=== PATIENT | female | born 1980 | race African-American/Black ===

== ENCOUNTER 2016-06-01 20:02 | Emergency (ER) | payer OTHER ==
[~2016-06-01] VITALS: Ht 160 cm; Wt 115.6 kg
[~2016-06-01 20:02] MED LIST: ASPIRIN81 M2 PO; GABAPENTIN300 MG PO; GLIPIZIDE5 MG PO; LANTUS 10100 UNITS/ SC; LISINOPRIL20 MG PO; METFORMIN HCL850 MG PO; METOPROLOL TART25 MG PO; SIMVASTATIN20 MG PO; TYLENOL WITH C1 EACH PO; VENTOLIN HFA18 GM IH
[2016-06-01 20:42] LABS: EOSINOPHIL COUNT 0.1 K/uL (0-0.3); HEMATOCRIT 38.7 % (36.0-46.0); IMMATURE GRANULOCYTE (%) 0.1 % (0.0-0.7); INSTRUMENT ABS NEUTROPHIL CT 3.1 K/uL; LYMPHOCYTE COUNT 3.7 K/uL (1.0-2.8); MCH 27.6 PG (29.0-34.0); MCHC 31.5 G/DL (30.0-36.0); MCV 87.6 FL (83-99); MEAN PLAT.VOLUME 10.4 uM^3 (9.5-12.4); MONOCYTE (%) 5.9 % (3-12); MONOCYTE COUNT 0.4 K/uL (0-0.8); NEUTROPHIL COUNT 3.1 K/uL (1.8-6.4); PLATELET COUNT 276 K/uL (156-360); RBC DIS.WIDTH-CV 13.3 % (11.8-14.6); RED BLOOD COUNT 4.42 M/uL (3.80-5.20); WHITE BLOOD COUNT 7.3 K/uL (4.1-10.2)
[2016-06-01 20:53] LABS: CHLORIDE 103 mEq/L (99-109); POTASSIUM 3.6 mEq/L (3.7-5.4); SODIUM 138 mEq/L (136-147)
[2016-06-01 20:55] LABS: GLUCOSE 203 mg/dL (70-99)
[2016-06-01 20:56] LABS: ANION GAP 9 MEQ/L (2-14)
[2016-06-01 20:57] LABS: TOTAL BILIRUBIN 0.2 mg/dL (0.0-1.0)
[2016-06-01 20:58] LABS: ALKALINE PHOSPHATASE 75 IU/L (3-129)
[2016-06-01 20:59] LABS: GFR ESTIMATE (CALCULATED) > 59 mL/min/
[2016-06-01 21:00] LABS: UREA NITROGEN (BUN) 7 mg/dL (9-23)
[2016-06-01 21:02] LABS: LIPASE 321 U/L (1.0-51.0)
[2016-06-01 21:03] LABS: ADD MIUA? YES; BILIRUBIN NEGATIVE; BLOOD MODERATE; COLOR YELLOW ((YELLOW)); GLUCOSE (STRIP) NEGATIVE; KETONES NEGATIVE; LEUKOCYTES TRACE; NITRITE NEGATIVE; PROTEIN (STRIP) NEGATIVE; SPECIFIC GRAVITY 1.011 (1.000-1.030); UROBILINOGEN 0.2 MG/DL (0.2-1.0)
[2016-06-01 21:42] LABS: BACTERIA RARE /HPF; EPITHELIAL CELLS 1+ /HPF; MUCUS NONE SEEN /LPF; WHITE BLOOD CELLS 0-5 /HPF (0-5)
[2016-06-01] MEDS ORDERED: ZOFRAN ODT4 MG PO (23:18)
[2016-06-01] MEDS ORDERED: NORCO 7.5/321 TABLET PO (23:18)
[2016-06-01 23:30] VITALS: BP 144/85
== END 2016-06-01 23:29 | disposition left against medical advice (07) ==
LOC: RME 20:02 → EME 20:02 → RME 23:29
PROVIDERS: Physician Assistant
DX: K85.90 Acute pancreatitis without necrosis or infection, unspecified (principal); E11.65 Type 2 diabetes mellitus with hyperglycemia; I10 Essential (primary) hypertension; Z79.82 Long term (current) use of aspirin; Z79.4 Long term (current) use of insulin; Z79.84 Long term (current) use of oral hypoglycemic drugs; Z72.0 Tobacco use
CPT/HCPCS: 74177; 80053; 81003; 83605; 83690; 85025; 99281; 99285; J1885; J3010; J7030

== ENCOUNTER 2016-06-03 10:02 | Inpatient (IN) | payer OTHER ==
[~2016-06-03] VITALS: Ht 160 cm; Wt 115.1 kg
[~2016-06-03 10:02] MED LIST changes: +NORCO 7.5/321 TABLET PO; +ZOFRAN ODT4 MG PO
[2016-06-03 10:52] LABS: POINT-OF-CARE METER ID UU14100415
[2016-06-03 11:07] LABS: HEMATOCRIT 40.2 % (36.0-46.0); MCH 28.3 PG (29.0-34.0); MCHC 31.8 G/DL (30.0-36.0); MCV 88.7 FL (83-99); MEAN PLAT.VOLUME 10.6 uM^3 (9.5-12.4); PLATELET COUNT 259 K/uL (156-360); RBC DIS.WIDTH-CV 13.3 % (11.8-14.6); RBC DIS.WIDTH-SD 43.7 % (39-53); RED BLOOD COUNT 4.53 M/uL (3.80-5.20); WHITE BLOOD COUNT 6.5 K/uL (4.1-10.2)
[2016-06-03 11:38] LABS: ADD MIUA? YES; BILIRUBIN NEGATIVE; BLOOD NEGATIVE; COLOR AMBER ((YELLOW)); GLUCOSE (STRIP) NEGATIVE; KETONES 5; LEUKOCYTES TRACE; NITRITE NEGATIVE; PROTEIN (STRIP) 30; SPECIFIC GRAVITY 1.026 (1.000-1.030); UROBILINOGEN 0.2 MG/DL (0.2-1.0)
[2016-06-03 11:55] LABS: CHLORIDE 104 mEq/L (99-109)
[2016-06-03 11:56] LABS: SODIUM 138 mEq/L (136-147)
[2016-06-03 11:58] LABS: GLUCOSE 224 mg/dL (70-99)
[2016-06-03 11:59] LABS: ANION GAP 12 MEQ/L (2-14)
[2016-06-03 12:01] LABS: ALKALINE PHOSPHATASE 71 IU/L (3-129); GFR ESTIMATE (CALCULATED) > 59 mL/min/
[2016-06-03 12:03] LABS: UREA NITROGEN (BUN) 6 mg/dL (9-23)
[2016-06-03 12:05] LABS: LIPASE 416 U/L (1.0-51.0); POTASSIUM 4.5 mEq/L (3.7-5.4); TOTAL BILIRUBIN 0.3 mg/dL (0.0-1.0)
[2016-06-03 12:10] LABS: BACTERIA 3+ /HPF; EPITHELIAL CELLS 1+ /HPF; MUCUS 3+ /LPF; RED BLOOD CELLS 0-5 /HPF (0-5); UCUL ADDED? YES
[2016-06-03 12:14] LABS: QUANTITATIVE HCG < 4.0 MIU/ML
[2016-06-03] MEDS ORDERED: METOPROLOL SUCC25 MG PO (13:59)
[2016-06-03] MEDS ORDERED: ERGOCALCIF50000 UNIT PO (14:00)
[2016-06-03] MEDS ORDERED: TRAZODONE HCL50 MG PO (14:01)
[2016-06-03] MEDS ORDERED: VENTOLIN HFA18 GM IH (14:02)
[2016-06-03] MEDS ORDERED: DICLOFENAC SODI75 MG PO (14:02)
[2016-06-03] MEDS ORDERED: SERTRALINE HCL100 MG PO (14:03)
[2016-06-03 15:22] LABS: SAMPLE HEMOLYSIS CHECK 2; SAMPLE ICTERIC CHECK 0; SAMPLE LIPEMIA CHECK 0
[2016-06-03 15:27] LABS: HDL CHOLESTEROL 36 MG/DL (Desirable>=50); LDL CHOLESTEROL 119 mg/dL (Desirable<100); NON-HDL CHOLESTEROL 147 mg/dL (Desirable<160); TOTAL CHOLESTEROL 183 mg/dL (Desirable<200); TRIGLYCERIDES 138 MG/DL (Normal: <150)
[2016-06-03 17:40] VITALS: BP 138/90
[2016-06-03 20:31] LABS: Estimated Average Glucose 171 mg/dL (70-123); HEMOGLOBIN A1c (GLYCOHEMOGLOB) 7.6 % HGB (Below 5.7)
== END 2016-06-03 17:32 | disposition home or self-care (01) | DRG 440 ==
LOC: EME 10:02 → EDOF 13:46
PROVIDERS: Emergency Medicine; Nurse Practitioner Adult Health
DX: K85.90 Acute pancreatitis without necrosis or infection, unspecified (principal); E11.40 Type 2 diabetes mellitus with diabetic neuropathy, unspecified; I10 Essential (primary) hypertension; Z79.4 Long term (current) use of insulin; F17.210 Nicotine dependence, cigarettes, uncomplicated; J45.909 Unspecified asthma, uncomplicated; E66.01 Morbid (severe) obesity due to excess calories
CPT/HCPCS: 80053; 80061; 81003; 82948; 83036; 83690; 84702; 85027; 87086; 99281; 99285; J1650; J1815; J2270; J2405; J7030; J7120

== ENCOUNTER 2016-06-04 10:43 | Inpatient (IN) | payer OTHER ==
[~2016-06-04] VITALS: Ht 160 cm; Wt 117.0 kg
[~2016-06-04 10:43] MED LIST changes: +DICLOFENAC SODI75 MG PO; +ERGOCALCIF50000 UNIT PO; +METOPROLOL SUCC25 MG PO; +SERTRALINE HCL100 MG PO; +TRAZODONE HCL50 MG PO
[2016-06-04 11:42] LABS: EOSINOPHIL (%) 1.2 % (0-5); EOSINOPHIL COUNT 0.1 K/uL (0-0.3); HEMATOCRIT 42.2 % (36.0-46.0); IMMATURE GRANULOCYTE (%) 0.2 % (0.0-0.7); INSTRUMENT ABS NEUTROPHIL CT 1.9 K/uL; LYMPHOCYTE COUNT 2.9 K/uL (1.0-2.8); MCH 28.2 PG (29.0-34.0); MCV 88.1 FL (83-99); MONOCYTE (%) 5.6 % (3-12); MONOCYTE COUNT 0.3 K/uL (0-0.8); NEUTROPHIL (%) 37.2 % (45-76); NEUTROPHIL COUNT 1.9 K/uL (1.8-6.4); RBC DIS.WIDTH-CV 13.2 % (11.8-14.6); RBC DIS.WIDTH-SD 43.1 % (39-53); RED BLOOD COUNT 4.79 M/uL (3.80-5.20); WHITE BLOOD COUNT 5.2 K/uL (4.1-10.2)
[2016-06-04 11:43] LABS: CHLORIDE 106 mEq/L (99-109); POTASSIUM 4.1 mEq/L (3.7-5.4); SODIUM 134 mEq/L (136-147)
[2016-06-04 11:45] LABS: GLUCOSE 147 mg/dL (70-99)
[2016-06-04 11:46] LABS: ANION GAP 10 MEQ/L (2-14)
[2016-06-04 11:49] LABS: ALKALINE PHOSPHATASE 94 IU/L (3-129); GFR ESTIMATE (CALCULATED) > 59 mL/min/
[2016-06-04 11:50] LABS: UREA NITROGEN (BUN) 5 mg/dL (9-23)
[2016-06-04 11:52] LABS: LIPASE 431 U/L (1.0-51.0)
[2016-06-04 12:00] LABS: TOTAL BILIRUBIN 0.4 mg/dL (0.0-1.0)
[2016-06-04 12:19] LABS: MEAN PLAT.VOLUME 11.1 uM^3 (9.5-12.4); PLAT.SUFFICIENCY ADEQUATE; PLATELET COUNT 202 K/uL (156-360)
[2016-06-04 15:13] LABS: TRIGLYCERIDES 124 MG/DL (Normal: <150)
[2016-06-04 15:40] VITALS: BP 145/96
[2016-06-04 23:24] VITALS: BP 139/92
[2016-06-05 07:33] VITALS: BP 126/68
[2016-06-05 07:41] LABS: HEMATOCRIT 36.8 % (36.0-46.0); MCH 28.1 PG (29.0-34.0); MCHC 30.7 G/DL (30.0-36.0); MCV 91.5 FL (83-99); MEAN PLAT.VOLUME 10.9 uM^3 (9.5-12.4); PLATELET COUNT 248 K/uL (156-360); RBC DIS.WIDTH-CV 13.8 % (11.8-14.6); RBC DIS.WIDTH-SD 46.2 % (39-53); RED BLOOD COUNT 4.02 M/uL (3.80-5.20); WHITE BLOOD COUNT 5.5 K/uL (4.1-10.2)
[2016-06-05 07:54] LABS: ALKALINE PHOSPHATASE 94 IU/L (3-129); ANION GAP 8 MEQ/L (2-14); CHLORIDE 108 MEQ/L (99-109); GFR ESTIMATE (CALCULATED) > 59 mL/min/; LIPASE 126 U/L (1.0-51.0); POTASSIUM 3.5 MEQ/L (3.7-5.4); SAMPLE HEMOLYSIS CHECK 0; SAMPLE ICTERIC CHECK 0; SAMPLE LIPEMIA CHECK 0; SODIUM 140 MEQ/L (136-147); TOTAL BILIRUBIN 0.4 MG/DL (0.0-1.0); UREA NITROGEN (BUN) 6 mg/dL (9-23)
[2016-06-05 07:58] LABS: GLUCOSE 80 mg/dL (70-99)
[2016-06-05 08:06] VITALS: BP 150/95
[2016-06-05 09:17] VITALS: BP 150/95
== END 2016-06-05 15:00 | disposition left against medical advice (07) | DRG 439 ==
LOC: EME 10:43 → EDOF 12:25 → 5SOUTH 12:25
PROVIDERS: Emergency Medicine; Hospitalist; Internal Medicine; Internal Medicine Gastroenterology
DX: K85.90 Acute pancreatitis without necrosis or infection, unspecified (principal); J44.1 Chronic obstructive pulmonary disease with (acute) exacerbation; E86.0 Dehydration; K76.0 Fatty (change of) liver, not elsewhere classified; I10 Essential (primary) hypertension; E11.9 Type 2 diabetes mellitus without complications; E78.5 Hyperlipidemia, unspecified; F17.210 Nicotine dependence, cigarettes, uncomplicated; E66.01 Morbid (severe) obesity due to excess calories; J45.909 Unspecified asthma, uncomplicated; Z68.42 Body mass index [BMI] 45.0-49.9, adult; Z91.19 Patient's noncompliance with other medical treatment and regimen; Z79.4 Long term (current) use of insulin; Z79.82 Long term (current) use of aspirin
CPT/HCPCS: 71010; 76705; 80053; 82948; 83690; 84478; 85025; 85027; 94640; 94640 76; 99202; 99281; 99285; J1170; J1815; J1885; J2270; J2405; J7030; S0028

== ENCOUNTER 2016-09-14 10:00 | Emergency (ER) | payer OTHER ==
[~2016-09-14] VITALS: Ht 160 cm; Wt 114.7 kg
[2016-09-14 10:49] LABS: HEMATOCRIT 40.5 % (36.0-46.0); MCH 27.2 PG (29.0-34.0); MCHC 31.1 G/DL (30.0-36.0); MCV 87.5 FL (83-99); MEAN PLAT.VOLUME 10.7 uM^3 (9.5-12.4); PLATELET COUNT 248 K/uL (156-360); RBC DIS.WIDTH-SD 44.3 % (39-53); RED BLOOD COUNT 4.63 M/uL (3.80-5.20); WHITE BLOOD COUNT 7.6 K/uL (4.1-10.2)
[2016-09-14 11:12] LABS: CHLORIDE 102 mEq/L (99-109); POTASSIUM 4.6 mEq/L (3.7-5.4); SODIUM 137 mEq/L (136-147)
[2016-09-14 11:16] LABS: ANION GAP 10 MEQ/L (2-14)
[2016-09-14 11:17] LABS: TOTAL BILIRUBIN 0.3 mg/dL (0.0-1.0)
[2016-09-14 11:18] LABS: ALKALINE PHOSPHATASE 79 IU/L (3-129); GFR ESTIMATE (CALCULATED) > 59 mL/min/
[2016-09-14 11:19] LABS: UREA NITROGEN (BUN) 7 mg/dL (9-23)
[2016-09-14 11:22] LABS: LIPASE 39 U/L (1.0-51.0)
[2016-09-14 11:32] LABS: QUANTITATIVE HCG < 4.0 MIU/ML
[2016-09-14 11:39] LABS: GLUCOSE 255 mg/dL (70-99)
[2016-09-14 11:59] LABS: ADD MIUA? YES; BILIRUBIN NEGATIVE; BLOOD NEGATIVE; COLOR YELLOW ((YELLOW)); GLUCOSE (STRIP) NEGATIVE; KETONES 5; LEUKOCYTES NEGATIVE; NITRITE NEGATIVE; PROTEIN (STRIP) 30; UROBILINOGEN 0.2 MG/DL (0.2-1.0)
[2016-09-14 12:02] LABS: BACTERIA NONE SEEN /HPF; EPITHELIAL CELLS 1+ /HPF; MUCUS NONE SEEN /LPF; RED BLOOD CELLS 0-5 /HPF (0-5); UCUL ADDED? NO; WHITE BLOOD CELLS 0-5 /HPF (0-5)
[2016-09-14 12:33] LABS: TROP-I INTERPRETATION NEGATIVE; TROPONIN-I < 0.01 ng/mL (0.0-0.30)
[2016-09-14] MEDS ORDERED: ZOFRAN ODT4 MG PO (13:20)
[2016-09-14] MEDS ORDERED: BENTYL20 MG PO (13:20)
[2016-09-14 13:53] VITALS: BP 120/77
== END 2016-09-14 13:54 | disposition home or self-care (01) ==
LOC: EME 10:00
DX: R10.10 Upper abdominal pain, unspecified (principal); E11.65 Type 2 diabetes mellitus with hyperglycemia; J45.909 Unspecified asthma, uncomplicated; I10 Essential (primary) hypertension; Z79.4 Long term (current) use of insulin; Z79.84 Long term (current) use of oral hypoglycemic drugs; Z79.899 Other long term (current) drug therapy; Z72.0 Tobacco use
CPT/HCPCS: 74000; 80053; 81003; 83690; 84484; 84702; 85027; 93005; 99281; 99283

== ENCOUNTER → 2016-09-24 | Outpatient (CLI) | payer OTHER ==
[~2016-09-24] VITALS: Ht 160 cm; Wt 115.4 kg
[~2016-09-24] MED LIST changes: +BENTYL20 MG PO; +TYLENOL W/COD1 COMB1 PO
[2016-09-24 10:38] LABS: POINT-OF-CARE METER ID UU14107333
== END | disposition home or self-care (01) ==
LOC: AMB 08:49
PROVIDERS: Internal Medicine Gastroenterology
DX: K86.1 Other chronic pancreatitis (principal); K82.8 Other specified diseases of gallbladder; E66.01 Morbid (severe) obesity due to excess calories; Z68.41 Body mass index [BMI] 40.0-44.9, adult; J45.909 Unspecified asthma, uncomplicated; E11.65 Type 2 diabetes mellitus with hyperglycemia; E78.00 Pure hypercholesterolemia, unspecified; I10 Essential (primary) hypertension; F17.200 Nicotine dependence, unspecified, uncomplicated; Z79.4 Long term (current) use of insulin; Z79.84 Long term (current) use of oral hypoglycemic drugs; Z79.82 Long term (current) use of aspirin; Z83.42 Family history of familial hypercholesterolemia; Z82.49 Family history of ischemic heart disease and other diseases of the circulatory system; Z83.3 Family history of diabetes mellitus
CPT/HCPCS: 82948; J0330; J2405; J2765; J3010

== ENCOUNTER → 2017-08-31 | Outpatient (CLI) | payer OTHER ==
[~2017-08-31] MED LIST changes: +ADVAIR 100/501 DISK IH; +BASAGLAR K100 UNIT/1 SC; +COLACE100 MG PO; +DICLOFENAC POTA50 MG PO; +DILAUDID4 MG PO; +IBUPROFEN800 MG PO; +METFORMIN HCL1000 MG PO; -METFORMIN HCL850 MG PO; +ONDANSETRON HCL8 MG PO; +ULTRAM50 MG PO; +ZOLOFT25 MG PO
== END | disposition home or self-care (01) ==
LOC: CDC 12:28
DX: Z01.810 Encounter for preprocedural cardiovascular examination (principal); K82.8 Other specified diseases of gallbladder; I45.4 Nonspecific intraventricular block; R94.31 Abnormal electrocardiogram [ECG] [EKG]
CPT/HCPCS: 93000

== ENCOUNTER 2017-09-01 05:23 | Day surgery (SDC) | payer OTHER ==
[~2017-09-01] VITALS: Ht 160 cm; Wt 113.4 kg
[~2017-09-01 05:23] MED LIST changes: -COLACE100 MG PO; -DILAUDID4 MG PO; -ONDANSETRON HCL8 MG PO
[2017-09-01 05:54] VITALS: BP 132/73
[2017-09-01] MEDS ORDERED: COLACE100 MG PO (09:30)
[2017-09-01] MEDS ORDERED: ONDANSETRON HCL8 MG PO (09:32)
[2017-09-01] MEDS ORDERED: DILAUDID4 MG PO (09:32)
[2017-09-01 11:25] VITALS: BP 144/76
[2017-09-01 12:37] VITALS: BP 107/91
== END 2017-09-01 12:35 | disposition home or self-care (01) ==
LOC: SDC 05:23
PROVIDERS: Surgery
PROC: 0FT44ZZ Resection of Gallbladder, Percutaneous Endoscopic Approach (ICD-10-PCS; principal; 2017-09-01)
DX: K80.10 Calculus of gallbladder with chronic cholecystitis without obstruction (principal); K82.8 Other specified diseases of gallbladder; E11.9 Type 2 diabetes mellitus without complications; E66.01 Morbid (severe) obesity due to excess calories; Z68.41 Body mass index [BMI] 40.0-44.9, adult; I10 Essential (primary) hypertension; J45.909 Unspecified asthma, uncomplicated; E78.5 Hyperlipidemia, unspecified; Z87.891 Personal history of nicotine dependence; Z79.82 Long term (current) use of aspirin; Z79.4 Long term (current) use of insulin
CPT/HCPCS: 82948; 88304; 94640; J0131; J0330; J0690; J1100; J1170; J2250; J2405; J3010